=== PATIENT | female | born 1985 | race Caucasian/White ===

== ENCOUNTER 2017-06-25 12:55 | Emergency (ER) | payer OTHER ==
[~2017-06-25] VITALS: Ht 165.1 cm; Wt 75.0 kg
[~2017-06-25 12:55] MED LIST: Z.0.NO CURRENT MEDS
[2017-06-25 12:56] VITALS: BP 146/71; PULSE 100; RESP 18; TEMP 97.9; O2SAT 95
[2017-06-25] MEDS ORDERED: SODIUM CHLOR 0.9% 1000 ML INJ 1,000 ML IV ONE (13:06)
--- NOTE | 2017-06-25 13:10 | PD ---
HPI Chief Complaint: Related Problem Time Seen by Provider: 12:59 Travel History International Travel<30 days: No Contact w/Intl Traveler<30days: No Traveled to known affect area: No History of Present Illness HPI The patient is a 32-year-old female who presents to the emergency department for lower abdominal cramping and . The patient's last menstrual cycle was February 2017, however, she has a history of irregular menstrual cycles. The patient took a test at the beginning of May that was negative, however, is taken 3 since last week which are positive. She does complain of lower abdominal cramping, denies any vaginal bleeding. The patient denies any dysuria, frequency, or urgency. The patient is a with a 10-year-old child at home delivered full-term via section. She has been taking a vitamin. She denies any persistent nausea, vomiting, or upper abdominal pain. The patient has not followed up with an supervisor contact lens/ managing manager. PFSH Past Medical History Diminished Hearing: No Gastrointestinal Disorders: Yes (HEMMORHOIDS) Immunizations Current: Yes ?: : 1 Para: 1 Past Surgical History Section: Yes Other Surgery: Yes (BACK ABCESS @ 5 YEARS OLD INFECTED ARIANNE) Social History Alcohol Use: No Tobacco Use: No Substance Use: No Allergies-Medications (Allergen,Severity, Reaction): Coded Allergies: No Known Allergies (Verified Adverse Reaction, Unknown, 06/25/17) Reported Meds & Prescriptions Reported Meds & Active Scripts Active No Active Prescriptions or Reported Medications Review of Systems Except as stated in HPI: all other systems reviewed are Neg HENT: No: Lightheadedness Cardiovascular: No: Chest Pain or Discomfort Respiratory: No: Shortness of Breath Gastrointestinal: No: Nausea, Vomiting, Abdominal Pain Genitourinary: Positive: Pelvic Pain (Cramping), No: Dysuria, Discharge, Vaginal Bleeding Physical Exam Narrative GENERAL: Awake, alert, nontoxic-appearing 32-year-old female who appears her stated age and is in no acute respiratory distress. SKIN: Focused skin assessment warm/dry. HEAD: Atraumatic. Normocephalic. EYES: No injection or drainage per NECK: Trachea midline. No JVD. CARDIOVASCULAR: Regular rate and rhythm. No murmur appreciated. RESPIRATORY: No accessory muscle use. Clear to auscultation. Breath sounds equal bilaterally. GASTROINTESTINAL: Abdomen soft, minimal suprapubic tenderness. Back: No CVA tenderness. MUSCULOSKELETAL: No obvious deformities. No clubbing. No cyanosis. No edema. NEUROLOGICAL: Awake and alert. No obvious cranial nerve deficits. Motor grossly within normal limits. Normal speech. PSYCHIATRIC: Appropriate mood and affect; insight and judgment normal. Data Data Last Documented VS Vital Signs Date Time Temp Pulse Resp B/P (MAP) Pulse Ox O2 Delivery O2 Flow Rate FiO2 06/25/17 12:56 97.9 100 18 146/71 (96) 95 Orders Orders Beta Hcg (Quant/Titer) (06/25/17 13:06) Us Pelvis (Ques Pr/Ect)W Trans (06/25/17 ) Urinalysis - C+S If Indicated (06/25/17 13:06) Sodium Chlor 0.9% 1000 Ml Inj (Ns 1000 M (06/25/17 13:06) Ed Urine Pregnancytest Poc (06/25/17 13:06) Urine Culture (06/25/17 13:20) Ceftriaxone Inj (Rocephin Inj) (06/25/17 14:00) Ed Discharge Order (06/25/17 14:51) Labs Laboratory Tests Test 06/25/17 13:20 Urine Color YELLOW Urine Turbidity CLOUDY Urine pH 8.0 Urine Specific [place] 1.021 Urine Protein TRACE mg/dL Urine Glucose (UA) NEG mg/dL Urine Ketones NEG mg/dL Urine Occult Blood NEG Urine Nitrite NEG Urine Bilirubin NEG Urine Urobilinogen LESS THAN 2.0 MG/DL Urine Leukocyte Esterase MOD Urine RBC 2 /hpf Urine WBC 22 /hpf Urine Squamous Epithelial Cells 10 /hpf Urine Amorphous Sediment MANY Urine Mucus FEW /lpf Microscopic Urinalysis Comment CULTURE INDICATED Human Chorionic Gonadotropin, Quant [id number] MIU/ML [facility] Medical Decision Making Medical Screen Exam Complete: Yes Emergency Medical Condition: Yes Medical Record Reviewed: Yes Interpretation(s) Last Impressions Pelvis Ultrasound 06/25/17 0000 Signed Impressions: Service Date/Time: Sunday, June 25, 2017 13:39 - CONCLUSION: 1. Viable IUP at 6 weeks gestational age. 2. There is a complex mass versus cyst associated with the right ovary measuring 2.5 cm. This could be a hemorrhagic cyst versus endometrioma. Edwin Magana MD Laboratory Tests Test 06/25/17 13:20 Urine Color YELLOW Urine Turbidity CLOUDY Urine pH 8.0 Urine Specific [place] 1.021 Urine Protein TRACE mg/dL Urine Glucose (UA) NEG mg/dL Urine Ketones NEG mg/dL Urine Occult Blood NEG Urine Nitrite NEG Urine Bilirubin NEG Urine Urobilinogen LESS THAN 2.0 MG/DL Urine Leukocyte Esterase MOD Urine RBC 2 /hpf Urine WBC 22 /hpf Urine Squamous Epithelial Cells 10 /hpf Urine Amorphous Sediment MANY Urine Mucus FEW /lpf Microscopic Urinalysis Comment CULTURE INDICATED Human Chorionic Gonadotropin, Quant [id number] MIU/ML Differential Diagnosis Differential diagnosis includes , threatened AB, ectopic , UTI , dehydration. Narrative Course IV was established, labs are drawn and sent, the patient was placed on cardiac telemetry monitoring and continuous pulse oximetry monitoring. Bedside UA test was obtained. Quantitative beta-hCG was sent to lab. The patient was administered 1 L of IV fluids. Ultrasound of the pelvis was ordered to rule out ectopic . Beta-hCG was greater than 13,000. Ultrasound is positive for IUP at 6 weeks with positive heart tones. Possible right hemorrhagic ovarian cyst. Patient also had a UTI, was administered 1 g of Rocephin, will be discharged home on Macrobid. The patient is stable for outpatient follow-up. She is advised to continue taking a vitamin daily. Diagnosis Primary Impression: Qualified Codes: Z3A.01 - Less than 8 weeks gestation of Additional Impression: UTI (urinary tract infection) Qualified Codes: N30.00 - Acute cystitis without hematuria Patient Instructions: General Instructions Additional Instructions: Please provide the patient a copy of her ultrasound results and lab results at discharge. Medication as directed. Take a vitamin daily. Follow-up with your primary physician. Plenty of fluids to stay hydrated. Med/Other Pt SpecificInfo: Prescription(s) given Scripts Nitrofurantoin Monohydrate Macrocrystals (Macrobid) 100 Mg Cap 100 MG PO BID for Infection for 10 Days, #20 CAP 0 Refills Prov: Enrico Mccrary MD 06/25/17 Disposition: 01 DISCHARGE HOME Condition: Stable Enrico Mccrary MD June 25, 2017 13:10
[2017-06-25 13:45] LABS: AMORPHOUS SEDIMENT, URINE MANY; BILIRUBIN, URINE NEG (NEG); BLOOD, URINE NEG (NEG); GLUCOSE,URINE NEG (NEG); KETONE, URINE NEG (NEG); MUCUS URINE FEW /lpf (OCC); NITRITE,URINE NEG (NEG); SQUAMOUS EPITHELIAL CELL URINE 10 /hpf (0-5); URINE COLOR YELLOW (YELLW/STRAW); URINE LEUKOCYTE ESTERASE MOD (NEG)
[2017-06-25] MEDS ORDERED: cefTRIAXone INJ 1,000 MG in SODIUM CHLORIDE 0.9% INJ 100 ML IV ONE (14:00)
--- NOTE | 2017-06-25 14:41 | RADRPT ---
EXAM DATE/TIME: 06/25/2017 13:39 [facility] COMPARISON: No previous studies available for comparison. INDICATIONS : Lower quadrant abdominal pain. LAB(S): Beta-hC MEDICAL HISTORY : Hemorrhoids. SURGICAL HISTORY : section. Back surgery. ENCOUNTER: Initial ACUITY: 1 day PAIN SCORE: 3/10 LOCATION: Bilateral pelvis MEASUREMENTS: UTERUS: 10.8 x 7.3 x 5.3 cm ENDOMETRIAL STRIPE: >20 mm RIGHT OVARY: 3.1 x 2.8 x 2.1 cm LEFT OVARY: 3.4 x 2.1 x 1.5 cm FREE FLUID: No free fluid CROWN RUMP LENGTH: 0.3 cm = 6 WKS 0 DAYS FHR: 100 BPM FINDINGS: UTERUS: There is a gestational sac within the endometrial cavity. The pole measures approximate 6 weeks of gestational age. The heart rate is approximately 100 beats per minute. RIGHT OVARY: There is a complex mass versus cyst a cyst with the right ovary measuring 2.5 x 1.9 cm per. LEFT OVARY: Ovary contains no mass or significant cystic lesion. MISCELLANEOUS: No free fluid. CONCLUSION: 1. Viable IUP at 6 weeks gestational age. 2. There is a complex mass versus cyst associated with the right ovary measuring 2.5 cm. This could b e a hemorrhagic cyst versus endometrioma. Edwin Magana MD on June 25, 2017 at 14:36 Board Certified Radiologist. This report was verified electronically.
[2017-06-25] MEDS ORDERED: MACR100C2 PO (14:54)
== END 2017-06-25 15:31 | disposition home or self-care (01) ==
LOC: NEPD 12:55
DX: O23.11 Infections of bladder in pregnancy, first trimester (principal); Z3A.01 Less than 8 weeks gestation of pregnancy
CPT/HCPCS: 76700; 76817; 81001; 84702; 84703; 87086; 96361; 96365; 99285; J0696; J7030

== ENCOUNTER 2017-08-05 15:27 | Emergency (ER) | payer OTHER ==
[~2017-08-05] VITALS: Ht 165.1 cm; Wt 78.0 kg
[~2017-08-05 15:27] MED LIST changes: +MACR100C2 PO; -Z.0.NO CURRENT MEDS
[2017-08-05 15:45] VITALS: BP 123/67; PULSE 102; RESP 16; TEMP 98.3; O2SAT 97
--- NOTE | 2017-08-05 16:39 | PD ---
HPI . Pelvic pain Chief Complaint: Related Problem Time Seen by Provider: 16:20 Travel History International Travel<30 days: No Contact w/Intl Traveler<30days: No Traveled to known affect area: No History of Present Illness HPI Patient presents with chief complaint of pelvic pain. Onset was last night. She states that she is 8-10 weeks . She denies vaginal bleeding or discharge. Pain is rated 8/10 with no modifying factors. PFSH Past Medical History Diminished Hearing: No Gastrointestinal Disorders: Yes (HEMMORHOIDS) Immunizations Current: Yes ?: : 1 Para: 1 Past Surgical History Section: Yes Other Surgery: Yes (BACK ABCESS @ 5 YEARS OLD INFECTED ARIANNE) Social History Alcohol Use: No Tobacco Use: No Substance Use: No Allergies-Medications (Allergen,Severity, Reaction): Coded Allergies: No Known Allergies (Verified Adverse Reaction, Unknown, 06/25/17) Reported Meds & Prescriptions Reported Meds & Active Scripts Active Macrobid (Nitrofurantoin Monoh/Nitrofur Macro) 100 Mg Cap 100 Mg PO BID 7 Days Macrobid (Nitrofurantoin Monoh/Nitrofur Macro) 100 Mg Cap 100 Mg PO BID 10 Days Review of Systems Except as stated in HPI: all other systems reviewed are Neg Physical Exam Narrative GENERAL: Awake and alert and in no acute distress. SKIN: Warm and dry. Normal color and turgor. HEAD: Normocephalic/atraumatic. EYES: Pupils are equal. Extraocular movements are intact. NECK: Normal range of motion. Supple. CARDIOVASCULAR: Regular rate and rhythm. RESPIRATORY: Nonlabored respirations. Normal sats. ABDOMEN: Soft and nontender. MUSCULOSKELETAL: Atraumatic. Normal muscle tone. NEUROLOGICAL: A and O 3. Nonfocal. PSYCHIATRIC: Appropriate mood and affect. Data Data Last Documented VS Vital Signs Date Time Temp Pulse Resp B/P (MAP) Pulse Ox O2 Delivery O2 Flow Rate FiO2 08/05/17 15:45 98.3 102 16 123/67 (85) 97 Orders Orders Beta Hcg (Quant/Titer) (08/05/17 15:47) Urinalysis - C+S If Indicated (08/05/17 16:22) Ed Poc Ultrasound (08/05/17 16:23) Gc And Chlamydia Pcr (08/05/17 18:09) Ed Discharge Order (08/05/17 18:50) Labs Laboratory Tests Test 08/05/17 16:02 08/05/17 16:45 Human Chorionic Gonadotropin, Quant [id number] MIU/ML Urine Color YELLOW Urine Turbidity HAZY Urine pH 7.5 Urine Specific [place] 1.019 Urine Protein TRACE mg/dL Urine Glucose (UA) NEG mg/dL Urine Ketones NEG mg/dL Urine Occult Blood NEG Urine Nitrite NEG Urine Bilirubin NEG Urine Urobilinogen LESS THAN 2.0 MG/DL Urine Leukocyte Esterase SMALL Urine RBC LESS THAN 1 /hpf Urine WBC 4 /hpf Urine Squamous Epithelial Cells 16 /hpf Urine Bacteria OCC /hpf Urine Mucus FEW /lpf Microscopic Urinalysis Comment CULT NOT INDICATED Chlamydia trachomatis DNA (PCR) NOT DETECTED Neisseria gonorrhoeae DNA (PCR) NOT DETECTED MDM Medical Decision Making Medical Screen Exam Complete: Yes Emergency Medical Condition: Yes Medical Record Reviewed: Yes (Patient was seen here on 06/25 for related issues. She had a quantitative hCG at that time which was 13,000. She had an ultrasound which showed a viable IUP at 6 weeks gestation.) Differential Diagnosis Differential diagnosis of pelvic pain includes but is not limited to UTI, PID, ectopic , spontaneous AB, constipation, viral illness Narrative Course This is a patient in the first trimester who presents with pelvic pain without bleeding. UA is pending. She has had a previous official ultrasound which showed a 6 week IUP on 06/25. Bedside ultrasound today shows positive movement and positive activity. She is stable for discharge to home. UA>>small LE, 4 WBCs and occ bact. Procedures Procedure Narrative Emergency Department Pelvic ultrasound was performed with patient consent. The curvilinear probe was used in the transverse and sagittal views within the suprapubic region revealing + intrauterine . heart rate was 152. Positive movement. Diagnosis Primary Impression: Abdominal pain affecting Additional Impression: Urinary tract infection affecting care of mother in first trimester, antepartum Patient Instructions: Abdominal Pain in (ED), General Instructions Scripts Nitrofurantoin Monohydrate Macrocrystals (Macrobid) 100 Mg Cap 100 MG PO BID for Infection for 7 Days, #14 CAP 0 Refills Prov: Rene Marquez MD 08/05/17 Disposition: 01 DISCHARGE HOME Condition: Stable Marge Escamilla MD Aug 05, 2017 16:39
[2017-08-05 17:15] LABS: BACTERIA, URINE OCC /hpf; BILIRUBIN, URINE NEG (NEG); BLOOD, URINE NEG (NEG); GLUCOSE,URINE NEG (NEG); KETONE, URINE NEG (NEG); MUCUS URINE FEW /lpf (OCC); NITRITE,URINE NEG (NEG); PH, URINE 7.5 (5.0-8.5); SQUAMOUS EPITHELIAL CELL URINE 16 /hpf (0-5); URINE COLOR YELLOW (YELLW/STRAW); URINE LEUKOCYTE ESTERASE SMALL (NEG)
--- NOTE | 2017-08-05 18:10 | PD ---
Data Data Last Documented VS Vital Signs Date Time Temp Pulse Resp B/P (MAP) Pulse Ox O2 Delivery O2 Flow Rate FiO2 08/05/17 15:45 98.3 102 16 123/67 (85) 97 Orders Orders Beta Hcg (Quant/Titer) (08/05/17 15:47) Urinalysis - C+S If Indicated (08/05/17 16:22) Ed Poc Ultrasound (08/05/17 16:23) Wet Prep Profile (08/05/17 18:09) Gc And Chlamydia Pcr (08/05/17 18:09) Ed Discharge Order (08/05/17 18:50) Labs Laboratory Tests Test 08/05/17 16:02 08/05/17 16:45 Human Chorionic Gonadotropin, Quant [id number] MIU/ML Urine Color YELLOW Urine Turbidity HAZY Urine pH 7.5 Urine Specific [place] 1.019 Urine Protein TRACE mg/dL Urine Glucose (UA) NEG mg/dL Urine Ketones NEG mg/dL Urine Occult Blood NEG Urine Nitrite NEG Urine Bilirubin NEG Urine Urobilinogen LESS THAN 2.0 MG/DL Urine Leukocyte Esterase SMALL Urine RBC LESS THAN 1 /hpf Urine WBC 4 /hpf Urine Squamous Epithelial Cells 16 /hpf Urine Bacteria OCC /hpf Urine Mucus FEW /lpf Microscopic Urinalysis Comment CULT NOT INDICATED MDM Supervised Visit with VIRGIL: No Narrative Course Patient CARE assume from Dr. Marge richards at 1700, this is a 32-year-old female presents emergency department for evaluation of pelvic pain. I was asked to follow-up the UA on this patient and disposition appropriately. UA shows asymptomatic bacteriuria. When I have interviewed the patient she is calm and nontoxic appearing, her abdomen is benign. When I ask her where the pain is she states it is down there. I therefore offered a pelvic exam even though she has not had any discharge or bleeding. Unfortunately my nurses have been called away to other ill patients, the patient approached nursing desk and stated that she has to go olive picker her son and would like to leave prior to having a pelvic exam. I think this is reasonable, discussed that she needs follow-up with her primary care physician or TRANSITION COACH discussed Macrobid for asymptomatic bacteriuria discussed return to ED criteria. Discussed vitamins and early care. Diagnosis Primary Impression: Abdominal pain affecting Patient Instructions: General Instructions, Abdominal Pain in (ED) Med/Other Pt SpecificInfo: Prescription(s) given Scripts Nitrofurantoin Monohydrate Macrocrystals (Macrobid) 100 Mg Cap 100 MG PO BID for Infection for 7 Days, #14 CAP 0 Refills Prov: Rene Marquez MD 08/05/17 Disposition: 01 DISCHARGE HOME Condition: Stable Rene Marquez MD Aug 05, 2017 18:10
[2017-08-05] MEDS ORDERED: MACR100C2 PO (18:52)
== END 2017-08-05 20:20 | disposition home or self-care (01) ==
LOC: NEPD 15:27
DX: O26.891 Other specified pregnancy related conditions, first trimester (principal); R10.2 Pelvic and perineal pain; O23.41 Unspecified infection of urinary tract in pregnancy, first trimester; Z3A.01 Less than 8 weeks gestation of pregnancy
CPT/HCPCS: 81001; 84702; 87491; 87591

== ENCOUNTER 2017-08-08 01:35 | Emergency (ER) | payer OTHER ==
[~2017-08-08] VITALS: Ht 167.6 cm; Wt 78.0 kg
[2017-08-08 01:41] VITALS: BP 123/79; PULSE 111; RESP 20; TEMP 98.5; O2SAT 97
[2017-08-08 01:51] VITALS: BP 132/83; PULSE 104; RESP 16; O2SAT 98
[2017-08-08 02:03] LABS: AUTOMATED NEUTROPHIL # 7.8 TH/MM3 (1.8-7.7); BASOPHIL % 0.4 % (0.0-2.0); EOSINOPHIL % 0.4 % (0.0-4.0); HEMATOCRIT 36.1 % (35.0-46.0); HEMOGLOBIN 11.9 GM/DL (11.6-15.3); LYMPH % 26.3 % (9.0-44.0); MEAN CELL VOLUME 75.5 FL (80.0-100.0); MEAN CORPUSCULAR HEMOGLOBIN 24.9 PG (27.0-34.0); MEAN CORPUSCULAR HGB CONC 32.9 % (32.0-36.0); MONO % 5.8 % (0.0-8.0); MONOCYTE # 0.7 TH/MM3 (0-0.9); NEUT % 67.1 % (16.0-70.0); PLATELET COUNT 362 TH/MM3 (150-450); RED BLOOD COUNT 4.77 MIL/MM3 (4.00-5.30); RED CELL DISTRIBUTION WIDTH 17.3 % (11.6-17.2); WHITE BLOOD COUNT 11.6 TH/MM3 (4.0-11.0)
[2017-08-08 02:21] LABS: ALBUMIN 3.3 GM/DL (3.4-5.0); ALT (GPT) 15 U/L (10-53); AST (GOT) 9 U/L (15-37); BICARBONATE 19.6 MEQ/L (21.0-32.0); BLOOD UREA NITROGEN 6 MG/DL (7-18); CALCIUM 8.4 MG/DL (8.5-10.1); CHLORIDE 107 MEQ/L (98-107); CREATININE 0.61 MG/DL (0.50-1.00); GLOMERULAR FILTRATION RATE 113 ML/MIN (>89); GLUCOSE,RANDOM 108 MG/DL (74-106); SODIUM (NA) 138 MEQ/L (136-145)
[2017-08-08 02:41] LABS: ALKALINE PHOSPHATASE 56 U/L (45-117); TOTAL BILIRUBIN ADULT 0.2 MG/DL (0.2-1.0); TOTAL PROTEIN 7.1 GM/DL (6.4-8.2)
[2017-08-08 04:30] VITALS: BP 111/68; PULSE 90; RESP 16; O2SAT 98
[2017-08-08 05:02] LABS: AUTOMATED NEUTROPHIL # 13.1 TH/MM3 (1.8-7.7); BASOPHIL % 0.2 % (0.0-2.0); HEMATOCRIT 34.7 % (35.0-46.0); HEMOGLOBIN 11.5 GM/DL (11.6-15.3); LYMPH % 10.5 % (9.0-44.0); LYMPHOCYTE # 1.6 TH/MM3 (1.0-4.8); MEAN CELL VOLUME 75.5 FL (80.0-100.0); MEAN CORPUSCULAR HEMOGLOBIN 25.1 PG (27.0-34.0); MEAN CORPUSCULAR HGB CONC 33.2 % (32.0-36.0); MEAN PLATELET VOLUME 7.1 FL (7.0-11.0); MONOCYTE # 0.6 TH/MM3 (0-0.9); NEUT % 85.3 % (16.0-70.0); PLATELET COUNT 334 TH/MM3 (150-450); RED CELL DISTRIBUTION WIDTH 17.1 % (11.6-17.2); WHITE BLOOD COUNT 15.3 TH/MM3 (4.0-11.0)
[2017-08-08 05:25] LABS: BILIRUBIN, URINE NEG (NEG); BLOOD, URINE LARGE (NEG); GLUCOSE,URINE NEG (NEG); KETONE, URINE 20 mg/dL (NEG); NITRITE,URINE NEG (NEG); SQUAMOUS EPITHELIAL CELL URINE 2 /hpf (0-5); URINE COLOR YELLOW (YELLW/STRAW); URINE LEUKOCYTE ESTERASE NEG (NEG)
--- NOTE | 2017-08-08 05:43 | PD ---
HPI . vaginal bleed Chief Complaint: Bleeding Time Seen by Provider: 01:51 Travel History International Travel<30 days: No Contact w/Intl Traveler<30days: No Traveled to known affect area: No History of Present Illness HPI Patient is a 32-year-old female who is 12 weeks by date is having bleeding heavy today changing multiple pads she is a patient of Dr. Hernández , SHe is having heavy bleeding today multiple pads changed . slight cramping pain and bleeding brings her to the hospital ...she was here in the hospital a week ago and on June 25 had ultrasounds that showed an IUP at that time and ectopic was ruled out.. now she is returning for heavy bleeding and cramping BUYER follow up DR HERNÁNDEZ is following her she is scheduled for appointment August 31.. Pt denies orthostatic feeling no SOB, no dizziness , she is accompanied by her 8 yr old son .. I do a Bedside sono showing HR M-Mode 158 and a lot of activity , PFSH Past Medical History Diminished Hearing: No Gastrointestinal Disorders: Yes (HEMMORHOIDS) Immunizations Current: Yes Influenza Vaccination: No ?: LMP: MAR 2017 : 2 Para: 1 Past Surgical History Section: Yes Other Surgery: Yes (BACK ABCESS @ 5 YEARS OLD INFECTED ARIANNE) Social History Alcohol Use: No Tobacco Use: No Substance Use: No Allergies-Medications (Allergen,Severity, Reaction): Coded Allergies: No Known Allergies (Verified Adverse Reaction, Unknown, 08/08/17) Reported Meds & Prescriptions Reported Meds & Active Scripts Active No Active Prescriptions or Reported Medications Review of Systems Except as stated in HPI: all other systems reviewed are Neg Genitourinary: Positive: Vaginal Bleeding Physical Exam Narrative GENERAL: pt is no extreme pain but nervous over her at 12 weeks and bleeding SKIN: Warm and dry. HEAD: Atraumatic. Normocephalic. EYES: Pupils equal and round. No scleral icterus. No injection or drainage. ENT: No nasal bleeding or discharge. Mucous membranes pink and moist. NECK: Trachea midline. No JVD. CARDIOVASCULAR: Regular rate and rhythm. RESPIRATORY: No accessory muscle use. Clear to auscultation. Breath sounds equal bilaterally. GASTROINTESTINAL: Abdomen soft, non-tender, nondistended. Hepatic and splenic margins not palpable. PELVIC excessive bleeding in vaginal vault , pooling few clots MUSCULOSKELETAL: Extremities without clubbing, cyanosis, or edema. No obvious deformities. NEUROLOGICAL: Awake and alert. No obvious cranial nerve deficits. Motor grossly within normal limits. Five out of 5 muscle strength in the arms and legs. Normal speech. PSYCHIATRIC: Appropriate mood and affect; insight and judgment normal. POC U/S trans abdo to pelvic --> + IUP --> fetus seen active and FHR on MMODE is 158 Data Data Last Documented VS Vital Signs Date Time Temp Pulse Resp B/P (MAP) Pulse Ox O2 Delivery O2 Flow Rate FiO2 08/08/17 05:49 08/08/17 04:30 90 16 98 Room Air 08/08/17 01:41 98.5 Orders Orders Complete Blood Count With Diff (08/08/17 01:50) Comprehensive Metabolic Panel (08/08/17 01:50) Beta Hcg (Quant/Titer) (08/08/17 01:50) Type And Screen (08/08/17 01:50) Ed Urine Pregnancytest Poc (08/08/17 01:51) Complete Blood Count With Diff (08/08/17 04:35) Urinalysis - C+S If Indicated (08/08/17 04:42) Ed Discharge Order (08/08/17 05:45) Labs Laboratory Tests Test 08/08/17 01:50 08/08/17 04:45 08/08/17 05:05 White Blood Count 11.6 TH/MM3 15.3 TH/MM3 Red Blood Count 4.77 MIL/MM3 4.60 MIL/MM3 Hemoglobin 11.9 GM/DL 11.5 GM/DL Hematocrit 36.1 % 34.7 % Mean Corpuscular Volume 75.5 FL 75.5 FL Mean Corpuscular Hemoglobin 24.9 PG 25.1 PG Mean Corpuscular Hemoglobin Concent 32.9 % 33.2 % Red Cell Distribution Width 17.3 % 17.1 % Platelet Count 362 TH/MM3 334 TH/MM3 Mean Platelet Volume 7.0 FL 7.1 FL Neutrophils (%) (Auto) 67.1 % 85.3 % Lymphocytes (%) (Auto) 26.3 % 10.5 % Monocytes (%) (Auto) 5.8 % 4.0 % Eosinophils (%) (Auto) 0.4 % 0.0 % Basophils (%) (Auto) 0.4 % 0.2 % Neutrophils # (Auto) 7.8 TH/MM3 13.1 TH/MM3 Lymphocytes # (Auto) 3.0 TH/MM3 1.6 TH/MM3 Monocytes # (Auto) 0.7 TH/MM3 0.6 TH/MM3 Eosinophils # (Auto) 0.0 TH/MM3 0.0 TH/MM3 Basophils # (Auto) 0.0 TH/MM3 0.0 TH/MM3 CBC Comment DIFF FINAL DIFF FINAL Differential Comment Blood Urea Nitrogen 6 MG/DL Creatinine 0.61 MG/DL Random Glucose 108 MG/DL Total Protein 7.1 GM/DL Albumin 3.3 GM/DL Calcium Level 8.4 MG/DL Alkaline Phosphatase 56 U/L Aspartate Amino Transf (AST/SGOT) 9 U/L Alanine Aminotransferase (ALT/SGPT) 15 U/L Total Bilirubin 0.2 MG/DL Sodium Level 138 MEQ/L Potassium Level 3.5 MEQ/L Chloride Level 107 MEQ/L Carbon Dioxide Level 19.6 MEQ/L Anion Gap 11 MEQ/L Estimat Glomerular Filtration Rate 113 ML/MIN Human Chorionic Gonadotropin, Quant [id number] MIU/ML Urine Color YELLOW Urine Turbidity HAZY Urine pH 6.0 Urine Specific [place] 1.015 Urine Protein 30 mg/dL Urine Glucose (UA) NEG mg/dL Urine Ketones 20 mg/dL Urine Occult Blood LARGE Urine Nitrite NEG Urine Bilirubin NEG Urine Leukocyte Esterase NEG Urine RBC /hpf Urine WBC 2 /hpf Urine Squamous Epithelial Cells 2 /hpf Microscopic Urinalysis Comment CULT NOT INDICATED MDM Medical Decision Making Medical Screen Exam Complete: Yes Emergency Medical Condition: Yes Medical Record Reviewed: Yes Differential Diagnosis possible threatened AB vs AB in progress vs placenta previa vs abruptio other . Narrative Course I do bedside US showing IUP with active fetus and FHR on MMDOE 158 wi nl limits and Pelvic exam shows pooling blood in vagian vault and cervix no visualized due to blood no ringed forceps available in ER I call Dr RIOSPRECISION LAYOUT WORKER hospitalist who feels nothing to do at this time and pt to go home on strict pelvic rest and if she is bleeding enough to change PADS 2 within an hour she should return for inpt observation . pt orthostatic vitals stable no significant hr or BP change and repeat CBC no great drop in Hgb safe for close follow up with Vagavic in AM BUYER business development professional will notify him of pts situation and vagianal bleeding possible placenta previa Diagnosis Primary Impression: Vaginal bleeding during Additional Impression: Placenta previa Qualified Codes: O44.01 - Complete placenta previa nos or without hemorrhage, first trimester Referrals: Leola Villavicencio MD Patient Instructions: Abdominal Pain in (ED), General Instructions, Placenta Previa (ED) Departure Forms: Work Release, Enter return to work date: Aug 13, 2017 Tests/Procedures Additional Instructions: You must stay in bed with pelvic rest , you must return to the ER if your bleeding to the point where you needed to change to sanitary napkins 2 within an hour or for any excessive bleeding , lightheaded ,dizziness ,shortness of breath you must return to the ER. I spoke with the index clerk business development professional jayro who is going to contact your index clerk Dr. VILLAVICENCIO who will be aware that you are having heavy bleeding and the risk of loss of > Bed rest pelvic rest ( no sex) until you see the doctor . Scripts No Active Prescriptions or Reported Meds Disposition: 01 DISCHARGE HOME Condition: Tano Dumont MD Aug 08, 2017 05:43
== END 2017-08-08 05:49 | disposition home or self-care (01) ==
LOC: NEPE 01:35
DX: O44.11 Complete placenta previa with hemorrhage, first trimester (principal); Z3A.12 12 weeks gestation of pregnancy
CPT/HCPCS: 80053; 81001; 84702; 84703; 85025; 86850; 86900; 86901

== ENCOUNTER 2017-08-08 23:39 | Emergency (ER) | payer OTHER ==
[2017-08-08 23:48] VITALS: BP 130/76; PULSE 98; RESP 18; TEMP 98; O2SAT 99
--- NOTE | 2017-08-09 00:54 | PD ---
HPI Chief Complaint: Related Problem Time Seen by Provider: 23:57 Travel History International Travel<30 days: No Contact w/Intl Traveler<30days: No Traveled to known affect area: No History of Present Illness HPI Patient 32-year-old female presented to the ER for evaluation of passing to moderately sized blood clots. The patient recently had an ultrasound which showed intrauterine and possibly placental previa, she states that she left last night feeling fine when she got home she felt a little woozy and did not pass any blood clots in the late this afternoon after being supine much of the day. Does not know her blood type but she is and states she did not have to have a shot after her first . She denies any abdominal pain nausea vomiting diarrhea constipation or vaginal discharge. States that she does not feel woozy or like she is going to pass out now. PFSH Past Medical History Medical History: Denies Significant Hx Diminished Hearing: No Gastrointestinal Disorders: Yes (HEMMORHOIDS) Immunizations Current: Yes ?: LMP: MARCH 2017, UNKNOWN ACTUAL DATE : 2 Para: 1 Past Surgical History Section: Yes Other Surgery: Yes (BACK ABCESS @ 5 YEARS OLD INFECTED ARIANNE) Social History Alcohol Use: No Tobacco Use: No Substance Use: No Allergies-Medications (Allergen,Severity, Reaction): Coded Allergies: No Known Allergies (Verified Adverse Reaction, Unknown, 08/08/17) Reported Meds & Prescriptions Reported Meds & Active Scripts Active No Active Prescriptions or Reported Medications Review of Systems Except as stated in HPI: all other systems reviewed are Neg Physical Exam Narrative GENERAL: Well-developed well-nourished no obvious distress SKIN: Focused skin assessment warm/dry. HEAD: Atraumatic. Normocephalic. EYES: Pupils equal and round. No scleral icterus. No injection or drainage. No conjunctival pallor ENT: No nasal bleeding or discharge. Mucous membranes pink and moist. NECK: Trachea midline. No JVD. CARDIOVASCULAR: Regular rate and rhythm. No murmur appreciated. RESPIRATORY: No accessory muscle use. Clear to auscultation. Breath sounds equal bilaterally. GASTROINTESTINAL: Abdomen soft, non-tender, nondistended. Hepatic and splenic margins not palpable. GENITOURINARY: Recommended to the patient and declined by her. MUSCULOSKELETAL: No obvious deformities. No clubbing. No cyanosis. No edema. NEUROLOGICAL: Awake and alert. No obvious cranial nerve deficits. Motor grossly within normal limits. Normal speech. PSYCHIATRIC: Appropriate mood and affect; insight and judgment normal. Data Data Last Documented VS Vital Signs Date Time Temp Pulse Resp B/P (MAP) Pulse Ox O2 Delivery O2 Flow Rate FiO2 08/09/17 01:16 08/08/17 23:48 98.0 98 18 99 Orders Orders Ed Poc Ultrasound (08/09/17 ) Ed Discharge Order (08/09/17 00:53) [facility] Medical Decision Making Medical Screen Exam Complete: Yes Emergency Medical Condition: Yes Differential Diagnosis Vaginal bleeding in , anemia highly unlikely, Rh mismatch is excluded by chart review showing Rh+ blood in this patient, threatened miscarriage, placenta previa. Narrative Course Patient room to the emergency department, she appears well in obvious distress, I suggested to her pelvic exam but she declined at this time, she appears well and I do not see any signs and symptoms that warrant further workup with this patient at this time. Discussed at length this could be a threatened miscarriage or could just be some placental previa spotting. Otherwise she needs follow-up with an CASH MANAGEMENT COORDINATOR, discussed early care, discussed return to ED criteria Procedures Procedure Narrative Bedside ultrasound: Transabdominal views obtained of the uterus showing intrauterine single, approximately 9 weeks 6 days by crown-rump length , heart tones in the 160s, motion observed, no gross deformity. Diagnosis Primary Impression: Vaginal bleeding in Scripts No Active Prescriptions or Reported Meds Disposition: 01 DISCHARGE HOME Condition: Stable Rene Marquez MD Aug 09, 2017 00:54
== END 2017-08-09 01:25 | disposition home or self-care (01) ==
LOC: NEPE 23:39
DX: O20.9 Hemorrhage in early pregnancy, unspecified (principal); Z3A.09 9 weeks gestation of pregnancy

== ENCOUNTER 2018-01-19 03:24 | Inpatient (IN) ==
--- NOTE | 2018-01-19 04:33 | ED ---
History of Present Illness Primary Care Physician: Jose Martin Collins Chief Complaint: Contractions History of Present Illness: 32-year-old at 36 weeks complaining of contractions. Previous for failure to progress desires patient-of Dr. Philippe. Gestational diabetes during this reports blood sugars are normal. Weeks Gestation:: 36 Para: 1 : 2 Review of Systems All other systems reviewed negative except as stated in HPI PMFSH - Medical History Medical History: Medical History (Last Updated 01/18/18 @ 03:01 by Dominique Salinas MD) Anxiety GDM, class A1 History of delivery, currently - Tobacco History Second Hand Smoke Exposure: No Smoking Status: Never smoker - Alcohol History How Often Do You Have a Drink Containing Alcohol: Never - Substance Use History Substance History: No History of Abuse - Travel History History of Recent Travel: No Medications and Allergies Active Medications: Active Medications Sodium Chloride (Ns Flush) 2 ml IV.FLUSH BID JABARI Sodium Chloride (Ns Flush) 2 ml IV.FLUSH PRN PRN PRN Reason: FLUSH AFTER USING IV ACCESS Terbutaline Sulfate (Brethine Inj) 0.25 mg SQ ONCE STA Stop: 01/19/18 04:26 Allergies Allergy/AdvReac Type Severity Reaction Status Date / Time No Known Allergies AdvReac Unknown none Uncoded 01/19/18 03:57 Home Medications Medication Instructions Recorded Confirmed Type prenat.vits,feli,yjx-vjbm-uacqx 1 tab PO DAILY 10/10/17 01/19/18 History [ Vitamin] docusate sodium [Colace] 1 tab PO DAILY 01/19/18 01/19/18 History ferrous sulfate 1 tab PO DAILY 01/19/18 01/19/18 History Exam Vital signs: Vital Signs 01/19/18 03:51 01/19/18 03:52 Temperature 98.4 F Pulse Rate 108 H Respiratory Rate 19 Blood Pressure 130/80 Intake & Output 01/18/18 01/18/18 01/19/18 06:59 18:59 06:59 Weight 87.997 kg - Constitutional mild distress - Routine HEENT Exam Head: Present: normocephalic ENT: Present: mucous membranes moist - Routine Neck Exam Present: supple - Routine Chest/Breast/Axilla Exam Chest wall: Absent: tenderness - Routine Respiratory Exam Absent: accessory muscle use - Routine Cardiovascular Exam Present: RRR - Routine Abdominal Exam Present: soft (Gravid. heart rate mild variable decelerations-areas of tetanic contraction) - Routine Exam Comments: Cervix 1 cm 90% effaced -3 station Results - Labs CBC & Chem 7: 01/19/18 04:20 Assessment and Plan - Diagnosis (1) Non-reactive NST (non-stress test) Code(s): O28.8 - Other abnormal findings on screening of mother Status: Acute (2) Desires (vaginal after ) trial Code(s): O34.219 - Maternal care for unspecified type scar from previous delivery Status: Acute (3) Uterine contractions Status: Acute (4) GDM, class A1 Code(s): O24.410 - Gestational diabetes mellitus in , diet controlled Status: Acute (5) 36 weeks gestation of Code(s): Z3A.36 - 36 weeks gestation of Status: Acute - Plan Plan IV hydration-terbutaline x1 contractions are too frequent. Plan to reassess heart rate tracing afterwards. Note after 2 doses of terbutaline IV fluids heart rate still category 2 not reactive mild variables however there is beat to beat variability present limited ultrasound with a BPP performed by MD 8 out of 8. Vertex presentation. Repeat cervical exam /-3 mid position with cervical change noted-plan to admit possibility of labor Discharge Plan - Discharge Disposition Patient Disposition: 30 Still Patient - Discharge Condition Condition: Stable - Physicians Team ED Provider: Sydney Rocha Primary Care Provider: Primary Care Roxy Woodruff - Rxs /Orders / Referrals /Forms Prescriptions: No Action docusate sodium [Colace] 100 mg Capsule 1 tab PO DAILY ferrous sulfate 325 mg (65 mg iron) Tablet 1 tab PO DAILY prenat.vits,feli,par-eqix-aglle [ Vitamin] Tablet 1 tab PO DAILY - Discharge Instructions Print Language: Estonian
[2018-01-19 04:35] LABS: Hematocrit 31.6 % (35.0-46.0); Hemoglobin 10.4 gm/dL (11.6-15.3); Mean Corpuscular HGB Conc 32.9 % (32.0-36.0); Mean Corpuscular Volume 82.1 fL (80.0-100.0); Mean Platelet Volume 7.2 fL (7.0-11.0); Platelet Count 217 th/mm3 (150-450); Red Blood Count 3.85 mil/mm3 (4.00-5.30); Red Cell Distribution Width 20.4 % (11.6-17.2); White Blood Count 16.7 th/mm3 (4.0-11.0)
[2018-01-19 04:46] LABS: Amorphous Sediment,Urine Few /hpf; Bacteria,Urine Rare /hpf; Bilirubin,Urine Negative (Negative); Clarity,Urine Cloudy (Clear); Color,Urine Yellow (Yellw/Straw); Glucose,Urine (UA) Negative (Negative); Leukocyte Esterase,Urine Moderate (Negative); Mucus,Urine Few /lpf (Occasional); Nitrite,Urine Negative (Negative); Specific Gravity,Urine 1.023 (1.002-1.035); Squamous Epithelial Cell,Urine 25 /hpf (0-5)
[2018-01-19] MEDS ORDERED: Naloxone Inj 0.4 MG/ML Vial IV.PUSH PRN ×2 (06:03→11:30)
[2018-01-19] MEDS ORDERED: Sodium Chlor 0.9% Inj 500 ML IV.SIG PRN (06:03)
[2018-01-19] MEDS ORDERED: Oxytocin 30 Units/500ml Premix 30 UNITS/500 ML BAG IV.SIG ONE ×2 (06:03→13:30)
[2018-01-19] MEDS ORDERED: Sod Chloride 0.9% Inj 1,000 ML IV.CONT PRN (06:03)
[2018-01-19] MEDS ORDERED: fentaNYL Citrate Inj 100 MCG/2 ML Ampul IV.PUSH PRN (06:03)
--- NOTE | 2018-01-19 06:09 | P.HPOB ---
Patient Name: Kezia Keating Record Number: [id number] Date of : 83 Patient Status: Inpatient Attending Provider: Sami Philippe Date: 01/19/18 04:27 Initialization Date: 01/19/18 04:27 History of Present Illness Primary Care Physician: Jose Martin Collins Chief Complaint: Contractions History of Present Illness: 32-year-old at 36 weeks complaining of contractions. Previous for failure to progress desires patient-of Dr. Philippe. Gestational diabetes during this reports blood sugars are normal. Weeks Gestation:: 36 Para: 1 : 2 Review of Systems All other systems reviewed negative except as stated in HPI PMFSH - Medical History Medical History: Medical History (Last Updated 01/18/18 @ 03:01 by Dominique Salinas MD) Anxiety GDM, class A1 History of delivery, currently - Tobacco History Second Hand Smoke Exposure: No Smoking Status: Never smoker - Alcohol History How Often Do You Have a Drink Containing Alcohol: Never - Substance Use History Substance History: No History of Abuse - Travel History History of Recent Travel: No Medications and Allergies Active Medications: Active Medications Sodium Chloride (Ns Flush) 2 ml IV.FLUSH BID JABARI Sodium Chloride (Ns Flush) 2 ml IV.FLUSH PRN PRN PRN Reason: FLUSH AFTER USING IV ACCESS Terbutaline Sulfate (Brethine Inj) 0.25 mg SQ ONCE STA Stop: 01/19/18 04:26 Allergies Allergy/AdvReac Type Severity Reaction Status Date / Time No Known Allergies AdvReac Unknown none Uncoded 01/19/18 03:57 Home Medications Medication Instructions Recorded Confirmed Type prenat.vits,feli,wsc-xgea-weokb 1 tab PO DAILY 10/10/17 01/19/18 History [ Vitamin] docusate sodium [Colace] 1 tab PO DAILY 01/19/18 01/19/18 History ferrous sulfate 1 tab PO DAILY 01/19/18 01/19/18 History Exam Vital signs: Vital Signs 01/19/18 03:51 01/19/18 03:52 Temperature 98.4 F Pulse Rate 108 H Respiratory Rate 19 Blood Pressure 130/80 Intake & Output 01/18/18 01/18/18 01/19/18 06:59 18:59 06:59 Weight 87.997 kg - Constitutional mild distress - Routine HEENT Exam Head: Present: normocephalic ENT: Present: mucous membranes moist - Routine Neck Exam Present: supple - Routine Chest/Breast/Axilla Exam Chest wall: Absent: tenderness - Routine Respiratory Exam Absent: accessory muscle use - Routine Cardiovascular Exam Present: RRR - Routine Abdominal Exam Present: soft (Gravid. heart rate mild variable decelerations-areas of tetanic contraction) - Routine Exam Comments: Cervix 1 cm 90% effaced -3 station- -change in cervix noted now 2 cm 90% effaced -3 station mid position after 1.5-hour Results - Labs CBC & Chem 7: 01/19/18 04:20 Assessment and Plan - Diagnosis (1) Non-reactive NST (non-stress test) Code(s): O28.8 - Other abnormal findings on screening of mother Status: Acute (2) Desires (vaginal after ) trial Code(s): O34.219 - Maternal care for unspecified type scar from previous delivery Status: Acute (3) Uterine contractions Status: Acute (4) GDM, class A1 Code(s): O24.410 - Gestational diabetes mellitus in , diet controlled Status: Acute (5) 36 weeks gestation of Code(s): Z3A.36 - 36 weeks gestation of Status: Acute - Plan NST category 2 -nonreactive with accelerations not meeting criteria occasional areas of mild decelerations. Limited BPP done at the bedside with a reassuring fetus 8 out of 8. There is a possibility patient is trying to labor will admit and observe
[2018-01-19] MEDS ORDERED: Citric Acid/Sodium Citrate Liq 30 ML UDC PO SCH (06:15)
[2018-01-19] MEDS: fentaNYL Citrate Inj 100 MCG/2 ML Ampul IV.PUSH PRN ×2 (08:53→10:19)
[2018-01-19 11:14] LABS: Amphetamine Urine With Conf Neg (Neg); Benzodiazepine Urine With Conf Neg (Neg); Cocaine Urine With Conf Neg (Neg); Opiates Urine With Conf Neg (Neg)
[2018-01-19 11:15] LABS: Cannabinoid Urine With Conf Neg (Neg)
[2018-01-19] MEDS ORDERED: Simethicone 80 MG Chew Tablet PO PRN (12:56)
--- NOTE | 2018-01-19 13:05 | P.OP ---
- Preoperative Diagnosis (1) Placenta abruption, delivered, current hospitalization (2) 36 weeks gestation of (3) Desires (vaginal after ) trial - Postoperative Diagnosis (1) 36 weeks gestation of (2) Uterine contractions (3) Placenta abruption, delivered, current hospitalization Date of procedure: 01/19/18 Procedure: Repeat low transverse section Anesthesia: spinal Surgeon: Sami Philippe MD Estimated blood loss (mL): 1,100 Operation and Findings: Findings viable female with Apgars of 7 and 8. Birthweight 2860. The C- section scar was corrected and quite wide. The uterus tubes and ovaries were normal. Upon entering the abdomen and the blood loss prior to the I estimated at 600 cc. The blood loss during the surgery was 500 cc. Counts were correct Indication for the procedure. Patient came to the labor room and was having regular uterine contractions and an occasional vault variable. The hospitalist gave 2 doses of terbutaline before my arrival and I was thinking she may have an abruption at that time but the tracing looks good and there was definite relaxation between the contractions. I came to check her and see if we can break her water her cervix had progressed to 3-4 but the baby was [place] high and the head was not applied. Before checking her I noticed that she was bleeding quite heavily she was known to have a posterior placenta previa that had resolved on ultrasound because of the bleeding felt that she was probably abrupting we called to repeat the section. She was readied in the labor room and taken to the operating room Procedure in detail Taken to the operating room identified by name band and verbally and given a spinal anesthetic. She was prepped and draped in the usual sterile manner for a section. A time out was taken. The old incision was excised sharply and the Pfannenstiel incision was made and carried down to the fascia the fascia was nicked bilaterally and the fascia was taken off the rectus muscle by blunt and sharp dissection. The rectus muscles were spread bluntly and the peritoneum was entered under direct vision. The incision was extended with care to avoid the urinary bladder. A bladder blade was placed and a bladder flap was created in the usual fashion. The lower uterine segment was then incised sharply in a transverse manner and taken down in the midline until the uterine cavity was entered. The incision was extended with the surgeon's fingers. At this point large amount of blood mixed with amniotic fluid was noted. The vertex was grasped and with fundal pressure the vertex was delivered without difficulty hypopharynx and nasopharynx were suctioned and the remainder of the delivered without difficulty. The cord clamping was delayed 45 seconds and then the cord was clamped cut and the was handed over to the resuscitation team cord blood was obtained the placenta was removed manually and the uterus was curettaged twice with a wet lap. The uterus was delivered from the abdomen. The uterine incision was repaired with 0 Vicryl in a running fashion in 2 layers the second layer imbricating the first. The cul-de-sac and gutters were cleaned of blood and debris the uterus was delivered back into the abdomen. The rectus muscles were reapproximated with 0 Vicryl in a running the fascia was repaired with 0 Vicryl from lateral to midline bilaterally. The subcutaneous layer was repaired with a 3-0 Vicryl. The skin was repaired with a 4-0 Monocryl in a subcuticular manner. Patient tolerated the procedure well and went to recovery room in good condition.
[2018-01-19] MEDS ORDERED: Oxytocin 30 Units/500ml Premix 30 UNITS/500 ML BAG IV.SIG PRN (17:57)
[2018-01-19] MEDS: ceFAZolin 1 GM Premix Inj 1 GM/50 ML FROZ.PIGGY IV.SIG SCH (20:14)
[2018-01-19] MEDS: Senna/Docusate Sodium 8.6/50 MG Tablet PO PRN (20:16)
[2018-01-19] MEDS ORDERED: Zolpidem Tartrate 5 MG Tablet PO PRN (21:00)
[2018-01-20] MEDS: ceFAZolin 1 GM Premix Inj 1 GM/50 ML FROZ.PIGGY IV.SIG SCH (04:28)
[2018-01-20 08:25] LABS: Baso % (Auto) 0.1 % (0.0-2.0); Eos % (Auto) 0.3 % (0.0-4.0); Hemoglobin 8.2 gm/dL (11.6-15.3); Lymph # (Auto) 1.8 th/mm3 (1.0-4.8); Lymph % (Auto) 11.2 % (9.0-44.0); Mean Corpuscular HGB Conc 32.9 % (32.0-36.0); Mean Corpuscular Hemoglobin 27.3 pg (27.0-34.0); Mono # (Auto) 0.9 th/mm3 (0.0-0.9); Mono % (Auto) 5.7 % (0.0-8.0); Neut # (Auto) 13.5 th/mm3 (1.8-7.7); Neut % (Auto) 82.7 % (16.0-70.0); Platelet Count 169 th/mm3 (150-450); Red Blood Count 3.01 mil/mm3 (4.00-5.30); Red Cell Distribution Width 20.8 % (11.6-17.2); White Blood Count 16.3 th/mm3 (4.0-11.0)
[2018-01-20] MEDS: Prenatal Vit/Ca/Iron/Folic Acid Tablet PO SCH (08:33)
[2018-01-20] MEDS: Senna/Docusate Sodium 8.6/50 MG Tablet PO PRN (08:34)
--- NOTE | 2018-01-20 12:05 | P.PNOB ---
Subjective Post op day: 1 Objective Vital Signs/I&O: Vital Signs 01/19/18 13:00 01/19/18 13:15 01/19/18 13:30 Temperature 97.6 F Pulse Rate 84 86 75 Respiratory Rate 19 18 17 Blood Pressure 102/53 L 107/57 L 100/55 L 01/19/18 13:45 01/19/18 15:10 01/19/18 16:07 Temperature 97.9 F 98.0 F 97.9 F Pulse Rate 86 72 74 Respiratory Rate 18 18 18 Blood Pressure 108/55 L 107/61 107/59 L 01/19/18 20:00 01/19/18 23:59 01/20/18 04:00 Temperature 98.2 F 98.7 F 98.4 F Pulse Rate 71 93 H 63 Respiratory Rate 18 18 18 Blood Pressure 119/71 106/66 107/65 01/20/18 08:00 Temperature 98.2 F Pulse Rate 95 H Respiratory Rate 20 Blood Pressure 96/70 L Intake & Output 01/19/18 01/20/18 01/20/18 18:59 06:59 18:59 Intake Total 1000 / 1000 50 / 50 Balance 1000 / 1000 50 / 50 Weight 87.997 kg Intake: IV 1000 / 1000 50 / 50 LR 1000 mL Inj 1,000 ML @ 125 1000 / 1000 mls/hr IV.CONT .Q8H [facility] Rx#: [id number] Ancef 1 GM Premix Inj 1 gm In 50 / 50 50 ml @ 100 mls/hr IV.SIG Q8H [facility] Rx#:[id number] Other: Weight On Admission 87.997 kg Result Diagrams: 01/20/18 08:05 Objective Remarks: GENERAL: Well-nourished, well-developed patient. CARDIOVASCULAR: Regular rate and rhythm without murmurs, gallops, or rubs. RESPIRATORY: Breath sounds equal bilaterally. No accessory muscle use. ABDOMEN/GI: Abdomen soft, non-tender, bowel sounds present. Incision: dressing, Clean, dry and intact. Fundus: Firm, non-tender at umbilicus. GENITOURINARY: Light to moderate bleeding. EXTREMITIES: No cyanosis or edema, non-tender, without signs of DVT. Medications and IVs: Active Medications Diphtheria/Pertussis/Tetanus Vacc (Boostrix Vaccine Inj) 0.5 ml IM .ONCE ONE Stop: 01/20/18 16:01 Oxytocin (Pitocin 30 Units/Ns 500 Ml Premix) 30 units in 500 mls @ 100 mls/hr IV.SIG UNSCH PRN PRN Reason: Heavy bleeding Ibuprofen (Motrin) 800 mg PO Q8H PRN PRN Reason: cramping Last Admin: 01/20/18 04:27 Dose: 800 mg Measles/Mumps/Rubella Vaccine Live (M-M-R Ii Vaccine Inj) 0.5 ml SQ .ONCE ONE Stop: 01/20/18 16:01 Ondansetron HCl (Zofran Inj) 4 mg IV.PUSH Q6H PRN PRN Reason: NAUSEA OR VOMITING Oxycodone/Acetaminophen (Percocet 5/325 Mg) 2 tab PO Q4H PRN PRN Reason: PAIN SCALE 6 TO 10 Last Admin: 01/19/18 20:15 Dose: 2 tab Oxycodone/Acetaminophen (Percocet 5/325 Mg) 1 tab PO Q4H PRN PRN Reason: PAIN SCALE 3 TO 5 Last Admin: 01/20/18 08:33 Dose: 1 tab Vit/Calcium/Iron/Folic Ac (Stuartnatal Plus 3) 1 tab PO DAILY JABARI Last Admin: 01/20/18 08:33 Dose: 1 tab Senna/Docusate Sodium (Melani-Colace) 2 tab PO Q12H PRN PRN Reason: CONSTIPATION Last Admin: 01/20/18 08:34 Dose: 2 tab Simethicone (Mylicon Chew) 80 mg PO QID PRN PRN Reason: FLATULENCE Last Admin: 01/20/18 04:27 Dose: 80 mg Sodium Chloride (Ns Flush) 2 ml IV.FLUSH BID JABARI Last Admin: 01/19/18 22:29 Dose: Not Given Sodium Chloride (Ns Flush) 2 ml IV.FLUSH PRN PRN PRN Reason: FLUSH AFTER USING IV ACCESS Zolpidem Tartrate (Ambien) 5 mg PO HS PRN PRN Reason: INSOMNIA Assessment and Plan - Diagnosis (1) Status post repeat low transverse section Code(s): Z98.891 - History of uterine scar from previous surgery Status: Acute Plan: routine care - Plan POD 1 pt doing well pain well managed with oral medication ambulates in the room without difficulty, denies SOB or dizziness Hgb 8.2 will start Venofer IV, repeat cbc in am baby in NICU and stable routine care
[2018-01-20] MEDS: Iron Sucrose Inj 100 MG in Sodium Chlor 0.9% Inj 100 ML IV.SIG SCH (15:48)
[2018-01-20] MEDS ORDERED: Diphtheria/Tetanus/Pertussis Vaccine Inj 0.5 ML Syringe IM ONE (16:00)
[2018-01-20] MEDS ORDERED: Measles/Mumps/Rubella Vaccine Inj 0.5 ML Vial SQ ONE (16:00)
[2018-01-21 05:53] LABS: Hematocrit 23.9 % (35.0-46.0); Mean Corpuscular HGB Conc 33.5 % (32.0-36.0); Mean Corpuscular Hemoglobin 27.5 pg (27.0-34.0); Mean Corpuscular Volume 82.2 fL (80.0-100.0); Mean Platelet Volume 7.2 fL (7.0-11.0); Platelet Count 200 th/mm3 (150-450); Red Blood Count 2.91 mil/mm3 (4.00-5.30); Red Cell Distribution Width 20.8 % (11.6-17.2); White Blood Count 16.5 th/mm3 (4.0-11.0)
--- NOTE | 2018-01-21 08:34 | P.PNOB ---
Subjective Post op day: 2 Objective Vital Signs/I&O: Vital Signs 01/20/18 20:00 Temperature 98.5 F Pulse Rate 73 Respiratory Rate 18 Blood Pressure 124/81 Result Diagrams: 01/21/18 05:03 Objective Remarks: GENERAL: Well-nourished, well-developed patient. CARDIOVASCULAR: Regular rate and rhythm without murmurs, gallops, or rubs. RESPIRATORY: Breath sounds equal bilaterally. No accessory muscle use. ABDOMEN/GI: Abdomen soft, non-tender, bowel sounds present. Incision: dressing Clean, dry and intact. Fundus: Firm, non-tender at umbilicus. GENITOURINARY: Light to moderate bleeding. EXTREMITIES: No cyanosis or edema, non-tender, without signs of DVT. Medications and IVs: Active Medications Oxytocin (Pitocin 30 Units/Ns 500 Ml Premix) 30 units in 500 mls @ 100 mls/hr IV.SIG UNSCH PRN PRN Reason: Heavy bleeding Iron Sucrose 100 mg/ Sodium (Chloride) 105 mls @ 105 mls/hr IV.SIG Q24H JABARI Stop: 01/22/18 15:59 Last Admin: 01/20/18 15:48 Dose: 105 mls/hr Ibuprofen (Motrin) 800 mg PO Q8H PRN PRN Reason: cramping Last Admin: 01/20/18 16:00 Dose: 800 mg Ondansetron HCl (Zofran Inj) 4 mg IV.PUSH Q6H PRN PRN Reason: NAUSEA OR VOMITING Oxycodone/Acetaminophen (Percocet 5/325 Mg) 2 tab PO Q4H PRN PRN Reason: PAIN SCALE 6 TO 10 Last Admin: 01/20/18 16:01 Dose: 2 tab Oxycodone/Acetaminophen (Percocet 5/325 Mg) 1 tab PO Q4H PRN PRN Reason: PAIN SCALE 3 TO 5 Last Admin: 01/20/18 08:33 Dose: 1 tab Vit/Calcium/Iron/Folic Ac (Stuartnatal Plus 3) 1 tab PO DAILY [facility] Last Admin: 01/20/18 08:33 Dose: 1 tab Senna/Docusate Sodium (Melani-Colace) 2 tab PO Q12H PRN PRN Reason: CONSTIPATION Last Admin: 01/20/18 08:34 Dose: 2 tab Simethicone (Mylicon Chew) 80 mg PO QID PRN PRN Reason: FLATULENCE Last Admin: 01/20/18 04:27 Dose: 80 mg Sodium Chloride (Ns Flush) 2 ml IV.FLUSH BID JABARI Last Admin: 01/20/18 15:50 Dose: 2 ml Sodium Chloride (Ns Flush) 2 ml IV.FLUSH PRN PRN PRN Reason: FLUSH AFTER USING IV ACCESS Zolpidem Tartrate (Ambien) 5 mg PO HS PRN PRN Reason: INSOMNIA Assessment and Plan - Diagnosis (1) Status post repeat low transverse section Code(s): Z98.891 - History of uterine scar from previous surgery Status: Acute Plan: routine care - Plan POD 2 pt doing well pain well managed with oral medication denies SOB, chest pain or dizziness with ambulation Hgb toaday 8.0 will continue Venofer IV baby remains NICU and stable routine care Discharge Planning: dc home tomorrow discussed stay close room
[2018-01-21] MEDS: Prenatal Vit/Ca/Iron/Folic Acid Tablet PO SCH (09:07)
[2018-01-21] MEDS: Iron Sucrose Inj 100 MG in Sodium Chlor 0.9% Inj 100 ML IV.SIG SCH (15:46)
[2018-01-22] MEDS: Senna/Docusate Sodium 8.6/50 MG Tablet PO PRN (01:25)
[2018-01-22 08:11] VITALS: BP 115/76
[2018-01-22 08:12] VITALS: PULSE 97; RESP 20; TEMP 98.8
--- NOTE | 2018-01-22 10:21 | P.PNOB ---
Subjective Post op day: 3 Objective Vital Signs/I&O: Vital Signs 01/21/18 20:00 01/22/18 08:00 Temperature 98.1 F 98.8 F Pulse Rate 108 H 97 H Respiratory Rate 18 20 Blood Pressure 146/85 H 115/76 Result Diagrams: 01/21/18 05:03 Objective Remarks: GENERAL: Well-nourished, well-developed patient. CARDIOVASCULAR: Regular rate and rhythm without murmurs, gallops, or rubs. RESPIRATORY: Breath sounds equal bilaterally. No accessory muscle use. ABDOMEN/GI: Abdomen soft, non-tender, bowel sounds present. Incision: Clean, dry and intact. Fundus: Firm, non-tender at umbilicus. GENITOURINARY: Light to moderate bleeding. EXTREMITIES: No cyanosis, mild edema to lower extremities, non-tender, without signs of DVT. Medications and IVs: Active Medications Oxytocin (Pitocin 30 Units/Ns 500 Ml Premix) 30 units in 500 mls @ 100 mls/hr IV.SIG UNSCH PRN PRN Reason: Heavy bleeding Iron Sucrose 100 mg/ Sodium (Chloride) 105 mls @ 105 mls/hr IV.SIG Q24H JABARI Stop: 01/22/18 15:59 Last Admin: 01/21/18 15:46 Dose: 105 mls/hr Ibuprofen (Motrin) 800 mg PO Q8H PRN PRN Reason: cramping Last Admin: 01/20/18 16:00 Dose: 800 mg Ondansetron HCl (Zofran Inj) 4 mg IV.PUSH Q6H PRN PRN Reason: NAUSEA OR VOMITING Oxycodone/Acetaminophen (Percocet 5/325 Mg) 2 tab PO Q4H PRN PRN Reason: PAIN SCALE 6 TO 10 Last Admin: 01/22/18 07:34 Dose: 2 tab Oxycodone/Acetaminophen (Percocet 5/325 Mg) 1 tab PO Q4H PRN PRN Reason: PAIN SCALE 3 TO 5 Last Admin: 01/20/18 08:33 Dose: 1 tab Vit/Calcium/Iron/Folic Ac (Stuartnatal Plus 3) 1 tab PO DAILY JABARI Last Admin: 01/21/18 09:07 Dose: 1 tab Senna/Docusate Sodium (Melani-Colace) 2 tab PO Q12H PRN PRN Reason: CONSTIPATION Last Admin: 01/22/18 01:25 Dose: 2 tab Simethicone (Mylicon Chew) 80 mg PO QID PRN PRN Reason: FLATULENCE Last Admin: 01/20/18 04:27 Dose: 80 mg Sodium Chloride (Ns Flush) 2 ml IV.FLUSH BID JABARI Last Admin: 01/22/18 01:26 Dose: 2 ml Sodium Chloride (Ns Flush) 2 ml IV.FLUSH PRN PRN PRN Reason: FLUSH AFTER USING IV ACCESS Zolpidem Tartrate (Ambien) 5 mg PO HS PRN PRN Reason: INSOMNIA Assessment and Plan - Diagnosis (1) Status post repeat low transverse section Code(s): Z98.891 - History of uterine scar from previous surgery Status: Acute Plan: routine care - Plan POD 3 pt doing well pain well managed with oral medication pt visiting with baby in nicu, infant stable routine care Discharge Planning: dc home today discussed stay close room
--- NOTE | 2018-01-22 10:30 | P.DS ---
Date of admission: 01/19/18 05:59 Primary care physician: Roxy Primary Care Physician Anticipated date of discharge: 01/22/18 Brief History from admission: 36 weeks gestations in labor, gestational DM diet controlled, previous c section pt desire to attempt DS: Diagnosis - Discharge Diagnosis (1) Status post repeat low transverse section Status: Acute Diagnosis: Principal (2) Placental abruption Status: Acute Diagnosis: Secondary DS: Summary Hospital Course: 36 weeks gestation previous c section with trial of labor, placental abruption and repeat c section preformed routine post op care - Time Spent with Patient Total time spent providing and/or coordinating discharge services: Less than 30 minutes Exam Vital signs: Vital Signs 01/21/18 20:00 01/22/18 08:00 Temperature 98.1 F 98.8 F Pulse Rate 108 H 97 H Respiratory Rate 18 20 Blood Pressure 146/85 H 115/76 Narrative: see post note Results Procedures completed during hospitalization: repeat c section Labs on day of discharge: Labs from last 24 hours 01/19/18 03:50 Ur Buprenorphine Negative Ur Heroin Screen Negative Urine Oxycodone Negative Ur Methadone Negative U Hydromorphone Confirm Negative Urine Fentanyl Negative Urine Gabapentin Negative Ur Phencyclidine (PCP) Negative Ur MDMA & Metabolites Negative Preliminary micro results at discharge 01/19/18 06:24 Group B Streptococcus Screen ([facility]) - Preliminary Genital - Genital Region Results Pending Discharge Plan - Discharge Disposition Patient Disposition: 01 Discharge Home - Discharge Condition Condition: Stable - Discharge Order Discharge Orders: Discharge Order (Routine); Ordered 01/22/18 Ordered By: Jennifer Yin [id number] [employer] Clear for Discharge (Routine); Ordered 01/22/18 Ordered By: Jennifer Yin - Discharge Details Anticipated Discharge Date: 01/22/18 - Physicians Team Primary Care Provider: Primary Care Roxy Woodruff Attending Provider: Sami Philippe
== END 2018-01-22 15:17 | disposition home or self-care (01) ==
LOC: HOBED 03:24 → H2E 05:56 → H1EA 14:56
PROVIDERS: ADMIT Obstetrics & Gynecology; ATTEND Obstetrics & Gynecology